=== PATIENT | female | born 1990 | race Two or more races ===

== ENCOUNTER 2016-10-10 13:21 | Emergency (ER) | payer MEDICAID ==
[~2016-10-10] VITALS: Ht 167.6 cm; Wt 58.5 kg
[~2016-10-10 13:21] MED LIST: PRENTAB40 OR
[2016-10-10 13:30] VITALS: BP 115/56
== END 2016-10-10 14:08 | disposition home or self-care (01) ==
LOC: ER 13:22
DX: S05.11XA Contusion of eyeball and orbital tissues, right eye, initial encounter (principal); F17.210 Nicotine dependence, cigarettes, uncomplicated; F12.10 Cannabis abuse, uncomplicated; Y04.8XXA Assault by other bodily force, initial encounter; Y93.89 Activity, other specified; Y99.8 Other external cause status; Y92.89 Other specified places as the place of occurrence of the external cause